=== PATIENT | male | born 1970 | race Two or more races ===

== ENCOUNTER 2017-07-18 11:48 | Observation (INO) | payer OTHER ==
[2017-07-18] MEDS ORDERED: KETOROLAC 30 MG/1 ML SDV IVP ONE (12:38)
[2017-07-18] MEDS ORDERED: NS 1,000 ML IV ONE (12:39)
[2017-07-18] MEDS ORDERED: DIAZEPAM 5 MG/ML 1 ML SYR IVP ONE (12:39)
[2017-07-18] MEDS: methylPREDNISolone SOD SUCC 125 MG/2 ML VIAL IVP ONE (12:57)
[2017-07-18] MEDS ORDERED: HYDROmorphONE/DILAUDID 2 MG/ML INJ IVP ONE (14:05)
[2017-07-18] MEDS ORDERED: HYDROmorphONE/DILAUDID 1 MG/ML INJ ONE ×3 (14:07→15:41)
--- NOTE | 2017-07-18 15:16 | EDPHY ---
H & P Time Seen by Provider: 07/18/17 12:17 HPI/ROS: CHIEF COMPLAINT: Back pain, left leg pain and weakness HISTORY OF PRESENT ILLNESS: 46-year-old male presents to the emergency department with severe pain in his low back radiating down his left leg. He states that he woke up this morning with some mild back pain. He tried to work and the pain became much worse. He states that the pain is in his left low back radiating down his left thigh into his left knee. He feels weakness in his left leg does not feel that he can bear weight on the left leg. He has had previous back problems and has had previous injections but not for at least 5-6 years. He denies bowel or bladder incontinence. He does not feel that he can bear weight and his left leg. He denies chest pain or difficulty breathing. Denies headache. No fevers or chills. No urinary symptoms. Took some Aleve this morning without relief. REVIEW OF SYSTEMS: Constitutional: No fever, no chills. Eyes: No double or blurry vision. ENT: No sore throat. Respiratory: No cough, no shortness of breath. Cardiac: No chest pain. Gastrointestinal: No abdominal pain, vomiting or diarrhea. Genitourinary: No dysuria. Musculoskeletal: Back pain as above. No neck pain Skin: No rashes. Neurological: No headache. 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 Georgian-speaking only. assistant vice president at bedside. Eyes: Pupils equal and round. Extraocular motions are all intact. ENT: Mouth: Mucous membranes moist. Respiratory: No wheezing, rhonchi, or rales, lungs are clear to auscultation. Cardiovascular: Regular rate and rhythm. Gastrointestinal: Abdomen is soft and nontender, no masses, no rebound or guarding, bowel sounds normal. Neurological: Alert and oriented x 3, cranial nerves II through XII grossly intact Skin: Warm and dry, no rashes. Musculoskeletal: Nontender to palpate along the cervical, thoracic or lumbar spine. Neck is supple. Extremities: Decreased range of motion of the left leg secondary to pain. Positive straight leg raise on the left, none on the right. Reflexes are 1+ and equal for lower extremities bilaterally. He does have weakness in his left foot with dorsiflexion compared to the right. Normal sensation to light touch with normal 2 point discrimination. Psychiatric: Patient is oriented X 3, there is no agitation. Constitutional: Initial Vital Signs Temperature (C) 36.5 C 07/18/17 11:56 Heart Rate 86 07/18/17 11:56 Respiratory Rate 17 07/18/17 11:56 Blood Pressure 161/96 H 07/18/17 11:56 O2 Sat (%) 95 07/18/17 11:56 O2 Delivery Mode Room Air Allergies/Adverse Reactions: No Known Allergies Allergy (Verified 07/18/17 11:55) Home Medications: Medication Instructions Recorded Aleve 07/18/17 Medical Decision Making - Diagnostics Imaging Results: Imaging Impressions Lumbar Spine MRI 07/18/17 12:39 Impression: New left L5-S1 disk bulge or protrusion, approaching a direct interface with the proximal left S1 root sleeve. ED Course/Re-evaluation: 46-year-old male presents to the emergency department with low back pain and radicular symptoms in his left leg as well as weakness in the left leg. No known new injury or trauma. He has had previous injections in his back but not for a number of years. On examination the patient does have some weakness especially with dorsiflexion in the left foot. MRI of the lumbar spine has been ordered. IV was established the patient was given 125 mg of IV Solu-Medrol, 30 mg of IV Toradol, 5 mg of IV Valium, and 0.5 mg of IV Dilaudid. MRI of the lumbar spine reveals new disc herniation at L5-S1 putting pressure on the S1 nerve root. This is new since previous MRI of 2011. Patient was re-evaluated multiple times. His pain had improved some although he still could not sit up on his own or put pressure on his left leg. Even movement of the left leg caused severe pain in his the low back especially and left leg. 3:10 p.m.: I spoke with on-call hospitalist, Dr. Debbi Ritter, who admit this patient to medical-surgical floor. She requested neurosurgical consult. 3:12 p.m.: I spoke with Dr. Jeferson Avitia, on-call neurosurgeon, who will evaluate the patient's MRI and consult on this patient. Differential Diagnosis: Back pain including but not limited to muscular pain, herniated disc, spine fracture, intra-abdominal causes and urinary tract infection. - Data Points Medications Given: Discontinued Medications Diazepam (Valium) 5 mg IVP EDNOW ONE Stop: 07/18/17 12:40 Last Admin: 07/18/17 12:59 Dose: 5 mg Hydromorphone HCl (Dilaudid) 0.5 mg IVP EDNOW ONE Stop: 07/18/17 14:06 Last Admin: 07/18/17 14:11 Dose: 0.5 mg Sodium Chloride (Ns) 1,000 mls @ 0 mls/hr IV ONCE ONE PRN Reason: Wide Open Stop: 07/18/17 12:40 Last Admin: 07/18/17 12:58 Dose: 1,000 mls Ketorolac Tromethamine (Toradol) 30 mg IVP EDNOW ONE Stop: 07/18/17 12:39 Last Admin: 07/18/17 12:58 Dose: 30 mg Methylprednisolone Sodium Succinate (Solu-Medrol) 125 mg IVP EDNOW ONE Stop: 07/18/17 12:40 Last Admin: 07/18/17 12:57 Dose: 125 mg Departure - Departure Disposition: [facility] Inpatient Acute Clinical Impression: Lumbar radiculopathy, acute Low back pain Qualifiers: Chronicity: acute Back pain laterality: left Sciatica presence: with sciatica Sciatica laterality: sciatica of left side Qualified Code(s): M54.42 - Lumbago with sciatica, left side Condition: Good
[2017-07-18] MEDS ORDERED: HYDROmorphONE/DILAUDID 1 MG/ML INJ IVP ONE (15:50)
[2017-07-18] MEDS ORDERED: ONDANSETRON DISINTEGRATING 4 MG TAB PO PRN (16:05)
[2017-07-18] MEDS ORDERED: ONDANSETRON 4 MG/2 ML VIAL IVP PRN (16:05)
[2017-07-18] MEDS ORDERED: HYDROmorphone HCL/NS 0.5 MG/ML SYR IVP PRN (16:11)
[2017-07-18] MEDS: oxyCODONE IR 5 MG TAB PO PRN ×2 (16:44→21:25)
--- NOTE | 2017-07-18 17:02 | GHP ---
[f rep st] HISTORY AND PHYSICAL DATE OF ADMISSION: 07/18/2017 CHIEF COMPLAINT: Acute lower back pain. HISTORY OF PRESENT ILLNESS: A 46-year-old Estonian-speaking male with history of lumbar back pain wit h prior steroid injections who developed excruciating left lower back and leg pain. He thinks he twe aked his back lifting something at work. 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 The pain is stabby from his lumbar spine down to behind his knee. He reports new weakness in that leg today. No bowel or bladder incontinen ce. The pain in his back was so bad today. He felt lightheaded. He also complains of right knee pain for the last 3 months. It intermittently swells after work. He has been taking 2 Aleve a day plus icing intermittently. He denies fevers, chills, or sweats. No r edness or warmth over that joint. REVIEW OF SYSTEMS: I completed a 10-point review of systems, negative except as noted in HPI. PAST MEDICAL HISTORY: 1. Lumbar back pain status post steroid injections. 2. Right knee pain. PAST SURGICAL HISTORY: Steroid injection, metal removed from right leg after work injury. He had to nsillectomy and nasal septum surgery. FAMILY HISTORY: Both parents of cancer. He does not know which kind. MEDICATIONS: Aleve 2 tabs a day. SOCIAL HISTORY: He lives in [place] with his and daughter. No alcohol, tobacco, or illicits. ALLERGIES: None. PHYSICAL EXAMINATION: VITAL SIGNS: Temperature is 36.5, blood pressure 161/96, heart rate in the 80 s, respiration 16, saturation 95% on room air. GENERAL: Obese male, appears uncomfortable, but no a cute distress. HEENT: PERRLA. Moist mucous membranes. CV: Regular rate and rhythm. No murmurs, gallops, or rubs. LUNGS: Clear. ABDOMEN: Obese, but soft, nontender, nondistended. Positive oliver l sounds. : No Catherine. MUSCULOSKELETAL: Decreased weakness over the left leg. He is able to lif t it minimally with sudden back and thigh pain. NEURO: 2 through 12 intact. Positive straight leg test on the left. PSYCH: Alert and oriented x3. LABORATORY DATA: WBC 9, hemoglobin 17, hematocrit 50, platelets 217. Sodium 142, potassium 4.2, chl oride 109, carbon dioxide 20, creatinine 0.7, glucose 134, calcium is 9.4. Urine is negative. Lumbar MRI: L5-S1 new focal disk bulge or protrusion in the left lateral recess that touches the pro ximal left S1 root sleeve. ASSESSMENT AND PLAN: 1. Acute back pain: Secondary to new L5-S1 disk bulge. No flag signs. No bowel or bladder inconti nence. He will be admitted for pain control. Dr. Avitia with Neurosurgery will evaluate. Was dosed Solu-Medrol here. Will start a Medrol Henry tomorrow. 2. Obesity: Counseled on diet and exercise. 3. Right knee pain: Suspect secondary to arthritis. No evidence of infection. Will check an x-ray . 4. Diet: Regular. 5. Deep venous thrombosis prophylaxis: Sequential compression devices. 6. Disposition: The patient warrants observation admission given acute back pain with inability to walk. We will have PT/OT evaluate as well as Neurosurgery. /[id number]/MODL
[2017-07-18] MEDS: KETOROLAC 30 MG/1 ML SDV IVP PRN (19:03)
--- NOTE | 2017-07-18 20:33 | GCON ---
[f rep st] CONSULTATION NEUROSURGERY CONSULT NOTE DATE OF CONSULTATION: 07/18/2017 TIME SEEN: The patient was seen and evaluated on the general care floor at [facility] at 5:10 p.m. on 07/18/2017. HPI: The patient is a 46-year-old Gibraltarian-speaking man with a history of lumbar issues in the past. He has had prior epidural steroid injections. Apparently, this morning, when he was carrying some b oxes, he developed excruciating left lower back pain and some leg pain. 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 The main pain is out laterally in the left lower back region over the SI joint. There is some radiation into the leg down the back of the thigh, and he says this als o goes to the foot. He does not have any pain in the toes that sounds radicular in nature, but he sa ys when he steps or puts weight on the foot, it gives him pain in the region of the SI joint. The pa in was bad enough and he was having trouble walking that he presented to the ER. He had a new lumbar MRI scan, which really and, all things considered, is relatively unremarkable. He has a very small disk bulge at L5-S1 on the left with some lateral recess stenosis that contacts the proximal left S1 nerve root but really does not appear to compress it in any way. He denies any bowel or bladder inco ntinence. He does not have any right leg pain and no other major complaints at this time. He is rel atively comfortable while lying in bed. REVIEW OF SYSTEMS: A 10-point review of systems is negative other than that described above in the H PI. PAST MEDICAL HISTORY: 1. Right knee pain. 2. Lumbar back pain with degenerative disk disease. PAST SURGICAL HISTORY: 1. Epidural steroid injections. 2. Foreign body removed from the right leg after a work injury. 3. Tonsillectomy. 4. Nasal septoplasty. FAMILY HISTORY: Positive for cancer in both of his parents but, otherwise, noncontributory to this a dmission. ALLERGIES: None. MEDICATIONS: Aleve. SOCIAL HISTORY: The patient lives in [place] with his and daughter. He denies alcohol, tobac co, or other drug use. PHYSICAL EXAM: VITAL SIGNS: Currently, he is afebrile with normal, stable vital signs. GENERAL: H e is awake, alert, and oriented x3. NEUROLOGIC: His cranial nerves 2-12 are grossly normal. He has 5/5 strength of the deltoid, biceps, triceps, wrist flexion, extension, and manager field bilaterally. In th e lower extremities, on the left leg, his exam is significantly limited due to pain, but all the pain that he describes is largely in the back in the region of the SI joint. He appears to have 5/5 stre ngth at the hip flexors, extensors; knee flexors, extensors; and plantar and dorsiflexion bilaterally , but it is somewhat difficult to tell for sure. Any movement of the leg or foot gives him pain in t he region of the SI joint. Compression of the SI joint also gives him pain in this region. He does have a positive ALEXA maneuver, as well as distraction maneuver, which are specific for SI joint pain . His sensation appears to be intact. Deep tendon reflexes appear to be normal. IMAGING REVIEW: See HPI. LABORATORY REVIEW: His white count is 9, hemoglobin 17, hematocrit 50, platelets are 217,000. Sodiu m 142, potassium 4.2, creatinine is 0.7, glucose 134. ASSESSMENT AND PLAN: The patient is a 46-year-old with sudden onset of left-sided back and some leg pain. Physical exam zuniga, all of his findings point to a left sacroiliitis or acute sacroiliac joint inflammation. I am really overall unimpressed with his MRI scan, as he does not really appear to green ve any significant nerve compression. While it is impossible that this is an S1 radiculopathy, the s ymptoms really do not fit well with this. We will see if we can arrange for him to have a left sacro iliac joint injection with Interventional Radiology tomorrow and see what kind of relief this might g et him. In the meantime, would recommend pain control with anti-inflammatories and could try lidocai ne patches over the local area. If this does not help him, then trying a left L5-S1 transforaminal s teroid injection would be reasonable, but we can see how he does with the sacroiliac joint injection first. We will follow along while he is in the hospital. Thanks for the kind consultation. /[id number]/MODL
[2017-07-18] MEDS: DIAZEPAM 5 MG TAB PO PRN (21:25)
[2017-07-19] MEDS: oxyCODONE IR 5 MG TAB PO PRN ×4 (01:59→21:04)
[2017-07-19] MEDS: KETOROLAC 30 MG/1 ML SDV IVP PRN ×2 (02:00→09:38)
[2017-07-19] MEDS: DIAZEPAM 5 MG TAB PO PRN ×2 (05:46→21:04)
[2017-07-19] MEDS: methylPREDNISolone 4 MG TAB PO SCH ×4 (07:20→21:03)
--- NOTE | 2017-07-19 09:32 | ASMTCMCOM ---
CM Note CM Note Notes: Chart reviewed. 46 year old male admitted for c/o back pain. 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 Lives Independently in [place] with his family.MRI with no significant findings. Injection to be done in IR. Needs to be determined. CM to follow. Plan: TBD Date Signed: 07/19/2017 09:32 AM Electronically Signed By:Joanna Navarro RN
--- NOTE | 2017-07-19 09:40 | NEUSURGPN ---
Assessment/Plan: S: Patient continues to have left > right leg pain and low back pain. Has not had injection yet. O: NAD, VSS Awake, alert SORIANO X 4 BLE 5/5 TTP over SI joint sulcus on left Pain with filiberto Sensation intact to lt touch A: 46 yo male with left > right leg pain that radiates down lateral thigh to knee. P: -MRI not impressive, shows very small disc at L5/S1 but nothing compressive -Exam positive for SI joint provocative tests - Left SI joint injection ordered for later today -Will follow up on how he does after SI joint injection, and can then follow up as outpatient -Discussed with Dr. Avitia -PT/OT - Physician Discussed Patient with Dr.: Avitia Neurosurgery Physical Exam - Vitals, I&O, Labs I and O 07/18/17 07/19/17 07/20/17 05:59 05:59 05:59 Intake Total 1000 Output Total 800 Balance 200 Weight 90.718 kg Intake: IV Infused (ml) 1000 Output: Urine (ml) 800 Other: Intake Quantity Yes Sufficient Number of Voids 1 Urinal 2 Vital Signs Temp Pulse Resp BP Pulse Ox 36.7 C 84 18 120/70 92 07/19/17 07:32 07/19/17 07:32 07/19/17 07:32 07/19/17 07:32 07/19/17 07:32 ICD10 Worksheet Patient Problems: Problems Problem Status Onset Low back pain Acute Lumbar radiculopathy, acute Acute
--- NOTE | 2017-07-19 11:00 | ASMTCMCOM ---
CM Note CM Note Notes: Patient screened by [employer] for financial eligibility for medicaid. Patient over income. Met with patient with checker in. Patient is to have a back injection this afternoon. The patient and his will call his employer to see if any additional help or benefits available to them. CM to follow. Likely home with no needs. Plan: Likely to dc home no needs. Date Signed: 07/19/2017 10:59 AM Electronically Signed By:Joanna Navarro RN
--- NOTE | 2017-07-19 11:12 | HOSPPROG ---
Hospitalist Progress Note Assessment/Plan: Patient is a 46-year-old Croatian-speaking male. He has a history of lumbar back pain with prior steroid injections. 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 * low back pain -left with greater than right leg pain that radiates down his lateral thigh to his knee -MRI shows a very small disc at L5/S1 but nothing compressive -on a Decadron taper -to get a SI joint injection later today * right knee pain -xray shows nothing acute *obesity with a BMI of 40 *Plan. To get a steroid injection later today. Reviewed with the patient and his about losing weight and doing some core strengthening that this would help avoid future back issues. Will re-evaluate later this afternoon and hopefully he can be discharged. Subjective: Patient said the back pain is ongoing and radiating Objective: Vital Signs Temp Pulse Resp BP Pulse Ox 36.7 C 84 18 120/70 92 07/19/17 07:32 07/19/17 07:32 07/19/17 07:32 07/19/17 07:32 07/19/17 07:32 07/18/17 07/19/17 07/20/17 05:59 05:59 05:59 Intake Total 1000 Output Total 800 Balance 200 - Physical Exam Constitutional: uncomfortable Eyes: PERRL Ears, Nose, Mouth, Throat: hearing normal Cardiovascular: regular rate and rhythym Respiratory: no respiratory distress Skin: warm, normal color Neurologic: AAOx3 Psychiatric: interacting appropriately ICD10 Worksheet Patient Problems: Problems Problem Status Onset Low back pain Acute Lumbar radiculopathy, acute Acute
[2017-07-19] MEDS ORDERED: LIDOCAINE 1% 300 MG/30 ML SDV ONE (12:17)
[2017-07-19] MEDS ORDERED: DEPO METHYLPREDNISOLONE 40 MG/ML SDV ONE (12:51)
[2017-07-20] MEDS: oxyCODONE IR 5 MG TAB PO PRN (03:34)
[2017-07-20] MEDS: KETOROLAC 30 MG/1 ML SDV IVP PRN ×3 (03:35→13:30)
[2017-07-20] MEDS: methylPREDNISolone 4 MG TAB PO SCH ×3 (08:49→13:31)
[2017-07-20] MEDS: ACETAMINOPHEN 325 MG TAB PO PRN ×2 (08:50→13:32)
--- NOTE | 2017-07-20 09:30 | HOSPPROG ---
Hospitalist Progress Note Assessment/Plan: Patient is a 46-year-old Irish-speaking male. He has a history of lumbar back pain with prior steroid injections. 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 * low back pain -left with greater than right leg pain that radiates down his lateral thigh to his knee -MRI shows a very small disc at L5/S1 but nothing compressive -on a Decadron taper -s/p SI joint injection -has some relief today and more mobile, requiring a walker * right knee pain -xray shows nothing acute *obesity with a BMI of 40 *Plan. dc home with Decadron taper, outpatient PT, patient to work with workman [employer] comp in regards to his injury. Subjective: [place] said the pain is better today. Objective: Vital Signs Temp Pulse Resp BP Pulse Ox 36.7 C 73 16 146/80 H 92 07/20/17 08:02 07/20/17 08:02 07/20/17 08:02 07/20/17 08:02 07/20/17 08:02 07/19/17 07/20/17 07/21/17 05:59 05:59 05:59 Intake Total 1000 Output Total 800 Balance 200 - Physical Exam Constitutional: obese, uncomfortable Eyes: PERRL Ears, Nose, Mouth, Throat: hearing normal Respiratory: no respiratory distress Gastrointestinal: other (large and round) Skin: warm Musculoskeletal: generalized weakness Neurologic: AAOx3 Psychiatric: interacting appropriately ICD10 Worksheet Patient Problems: Problems Problem Status Onset Low back pain Acute Lumbar radiculopathy, acute Acute
--- NOTE | 2017-07-20 10:03 | SOAPPROG ---
ELY Progress Note Assessment/Plan: Assessment: 46 yo male with LBP and left posterolateral leg pain that started at work Post procedure day #1 s/p left SI joint injection. Pt feels somewhat better Plan: PT/OT as tolerated Continue conservative management of pain as Lumbar MRI is not impressive for a surgical lesion to address. Continue Medrol dospak We will sign off. Patient may follow up with Dr. Avitia as outpatient in 7-10 days Subjective: Patient was seen with Lurdes Cam and with bdr present. Patient feels a little better today, but still reports LBP and left posterollateral leg pain that does not go past the knee. Objective: Vital Signs Temp Pulse Resp BP Pulse Ox 36.7 C 73 16 146/80 H 92 07/20/17 08:02 07/20/17 08:02 07/20/17 08:02 07/20/17 08:02 07/20/17 08:02 07/19/17 07/20/17 07/21/17 05:59 05:59 05:59 Intake Total 1000 Output Total 800 Balance 200 Neuro: oriented x 4 follows commands able to heel and toe stand when using the walker for stability minimal tenderness to left SI joint near injection site sens +LT throughout ICD10 Worksheet Patient Problems: Problems Problem Status Onset Low back pain Acute Lumbar radiculopathy, acute Acute
--- NOTE | 2017-07-20 10:41 | GDS ---
[f rep st] DISCHARGE SUMMARY DISCHARGE DIAGNOSES: 1. Acute low back pain. 2. Right knee pain. 3. Obesity with a body mass index of 40. CONSULTATION: Dr. Brent Avitia. HISTORY: Briefly, the patient is a 46-year-old Bengali-speaking male with a history of lumbar back p ain with prior steroid injections. He developed excruciating left lower back and leg pain after twea michelle it at work. He also was having some right knee pain that has been ongoing for the last several months. He was seen and evaluated by Dr. Brent Avitia with neurosurgical services. He reviewed his MRI and noted that he had a very small disk bulge at L5-S1 on the left with some lateral recess steno sis that contacts the proximal left S1 nerve root, but really does not appear to compress it in any w ay. He does not have any bowel or bladder incontinence. The recommendation was to get a left sacral joint injection which he did. He did get some relief with the injection. The plan is for him to go home on a Decadron taper and further followup with Workman's Comp. HOSPITAL COURSE: 1. Low back pain. He is definitely having more relief. He is requiring a walker. He was able to d o stairs with Physical Therapy. I will give him a prescription for physical therapy in the outpatien t setting for core strengthening and helping him walk. 2. Right knee pain. His x-ray showed nothing acute. 3. Obesity. He has a BMI of 40. This is impacting his ability especially as he gets older and with the work he is doing. Recommendation was weight loss. DISCHARGE CONDITION: Stable. VITAL SIGNS: Blood pressure is 146/80, respiratory rate is 16, pulse 73, temperature is 36.7 Celsius , O2 sats on room air 92%. MEDICATIONS AT DISCHARGE: Please see the EMR. DISCHARGE INSTRUCTIONS: 1. Take the Medrol Dosepak, start on day #2. 2. Further followup with Workman's Comp. 3. Work with Physical Therapy as instructed. /[id number]/MODL
[2017-07-20] MEDS ORDERED: POLYETHYLENE GLYCOL 3350 17 GM PKT PO PRN (11:40)
[2017-07-20] MEDS ORDERED: LACTULOSE 20 GM/30 ML UDCUP PO PRN (11:40)
[2017-07-20] MEDS ORDERED: MAGNESIUM HYDROXIDE 30 ML UDCUP PO PRN (11:40)
[2017-07-20] MEDS ORDERED: BISACODYL 10 MG SUPP PR PRN (11:40)
[2017-07-20] MEDS ORDERED: SENNOSIDES/DOCUSATE SODIUM TAB PO SCH (11:45)
[2017-07-20 12:10] VITALS: BP 128/76
[2017-07-20] MEDS ORDERED: methylPREDNISolone 4 MG TAB PO SCH (21:00)
[2017-07-21] MEDS ORDERED: methylPREDNISolone 4 MG TAB PO SCH (07:30)
[2017-07-22] MEDS ORDERED: methylPREDNISolone 4 MG TAB PO SCH (07:30)
[2017-07-23] MEDS ORDERED: methylPREDNISolone 4 MG TAB PO SCH (07:30)
[2017-07-24] MEDS ORDERED: methylPREDNISolone 4 MG TAB PO SCH (07:30)
== END 2017-07-20 13:42 | disposition home or self-care (01) ==
LOC: F3N 16:20
PROVIDERS: ADMIT Internal Medicine; ATTEND Hospitalist
PROC: 3E0S33Z Introduction of Anti-inflammatory into Epidural Space, Percutaneous Approach (ICD-10-PCS; principal; 2017-07-18)
PROC: 3E0S3BZ Introduction of Anesthetic Agent into Epidural Space, Percutaneous Approach (ICD-10-PCS; principal; 2017-07-18)
DX: M51.16 Intervertebral disc disorders with radiculopathy, lumbar region (principal); E66.9 Obesity, unspecified; Z68.41 Body mass index [BMI] 40.0-44.9, adult; M25.561 Pain in right knee
CPT/HCPCS: 96374; 97116-GP; 97161-GP; G0378; J1030; J1170; J1885; J2930; J3360